=== PATIENT | male | born 1980 | race Caucasian/White ===

== ENCOUNTER → 2019-09-05 | Day surgery (SDC) | payer OTHER ==
[~2019-09-05] MED LIST: HYDROmorphone 2 MG/ML VIAL IV PRN; IV RINGERS,LACTATED 1000ML 1,000 ML IV SCH; LIDOCAINE 1% PF 2 ML VIAL. ID PRN; LIDOCAINE 2% PF 5 ML VIAL. ONE; MORPHINE SULFATE 2 MG/ML VIAL. IV PRN; ONDANSETRON PF 4 MG/2 ML VIAL. IV PRN; PROCHLORPERAZINE 10 MG/2 ML VIAL. IV PRN; fentaNYL PF VIAL 100 MCG/2 ML VIAL IV PRN
[2019-09-05 07:31] VITALS: BP 116/75
--- NOTE | 2019-09-05 17:15 | CONS ---
DATE OF CONSULTATION: 09/05/2019 REFERRING PHYSICIAN: Dr. Abhi Blue. REASON FOR CONSULTATION: Globus sensation and heartburn. HISTORY OF PRESENT ILLNESS: A 39-year-old male with past medical history significant for vocal cord paralysis on one side seen with persistent globus sensation. He has heartburn, minimal dysphagia is noted. Weight and appetite are stable. With continued symptoms, upper endoscopy is requested for further assess. ALLERGIES: None. MEDICATIONS: None. FAMILY AND SOCIAL HISTORY: Significant for colon cancer with his father, myocardial infarction with his father. He is a nonsmoker and nonsocial drinker. REVIEW OF SYSTEMS: Per records. PHYSICAL EXAMINATION: GENERAL: Reveals a well-nourished, well-developed male who is alert, cooperative, in no acute distress. VITAL SIGNS: Temperature 97.4, pulse 74, respiratory rate 18. HEENT: Normocephalic, atraumatic head. Pupils and extraocular muscles are not tested. Sclerae anicteric. NECK: Supple. LUNGS: Clear. CARDIOVASCULAR: Reveals S1, S2 without S3, S4 or appreciable murmur. ABDOMEN: Reveals soft abdomen, normal bowel sounds, without appreciable hepatosplenomegaly. EXTREMITIES: Reveals no cyanosis, clubbing or edema. IMPRESSION: Globus sensation with heartburn with minimal dysphagia, etiology to be determined. Recommend upper endoscopy to further assess, Casiano's, achalasia, Zenker's diverticulum certainly are all in differential. Risks and benefits of procedure including risk of hemorrhage and perforation during the operation were discussed. The patient is to proceed at this time. MANUELITO SUN MD DR: JAYDE/remi JOB#: [id number] / [id number]
--- NOTE | 2019-09-08 14:07 | PATHOLOGY ---
[facility] Accession Number: [id number] . 01 Material submitted: . esophagus - DISTAL ESOPHAGUS BX. Modifiers: distal . 01 Clinical history: . Pre-OP DX: GERD, heartburn Post-OP DX: Rule out Casiano's . 02 Diagnosis: Esophageal biopsies, distal esophagus: - Segments of hyperplastic squamous esophageal mucosa consistent with reflux esophagitis. (JPM:[facility] 09/08/2019) P 09/08/2019 0906 Local . 02 Comment: Sections of the distal esophageal biopsy reveal segments of tangentially oriented, hyperplastic squamous esophageal mucosa. The findings are consistent with reflux esophagitis. There is no evidence of Casiano's change, dysplasia, or malignancy. (JPM:[facility] 09/08/2019) . 02 Electronically signed: . Cheng Henley MD, Pathologist NPI- [id number] . 01 Gross description: . Received in formalin labeled "Cornell Ayala, distal esophagus BX," are multiple segments of norman soft tissue measuring 0.7 x 0.3 x 0.1 cm in aggregate dimensions. The specimen is filtered and entirely submitted in cassette A1. (TSD; 09/05/2019) TOB/TOB 09/05/2019 2257 Local . 02 Pathologist provided ICD-10: K21.9 . 02 CPT . 406769 Specimen Comment: A courtesy copy of this report has been sent to [phone], [phone] Specimen Comment: [phone] Specimen Comment: Report sent to and Performed at: [address], [place], [place] [id number] MD Shashank Winters MD Phone: [phone] Performed at: 02 [facility] [address] [place], [place] [id number] MD Cheng Henley MD Phone: [phone]
== END ==
LOC: ENDOS 06:19
PROVIDERS: ATTEND Internal Medicine Gastroenterology
DX: R12 Heartburn (principal); K21.0 Gastro-esophageal reflux disease with esophagitis; Z72.89 Other problems related to lifestyle
CPT/HCPCS: 43239; 88305; J2001